=== PATIENT | male | born 1980 | race Caucasian/White ===

== ENCOUNTER 2023-12-13 16:38 | Emergency (ER) | payer OTHER, MEDICARE, SELFPAY ==
[2023-12-13] VITALS (7 sets, daily range): BP systolic 136–153; BP diastolic 103–115; PULSE 76–97; RESP 14–20; TEMP 36.8; O2SAT 95–100
--- NOTE | ~2023-12-13 | CT_ITS ---
CT cervical spine wo con Ordering provider: Rosy Pierre PA-C History: . paresthesias . Comparison: None. Technique: CT of the cervical spine was performed without contrast. Sagittal and coronal reformatted images were also obtained and reviewed. Automated exposure control and iterative reconstruction joseph hnique were employed. The dose-length product was 471.26 mGy-cm. FINDINGS: VERTEBRAE: No subluxation or acute fracture. The occipital condyles are intact. Degenerative changes of the spine. DISC SPACES: Narrowing of the disc C6-C7. Bilateral narrowing of the foramina at the level of C6-7. PARASPINOUS SOFT TISSUES: Normal. IMPRESSION: No acute osseous abnormality cervical spine. Reviewed, dictated and finalized at location A.
--- NOTE | ~2023-12-13 | CT_ITS ---
CT brain wo con Ordering provider: Rosy Pierre PA-C History: 43 years Male with . Paresthesias . Comparison: None. Technique: CT of the head without contrast. Radiation reduction technique utilized. DLP is 605.33 mGy. FINDINGS: BRAIN PARENCHYMA AND CSF SPACES: No midline shift, mass effect or hemorrhage. The brain parenchyma a nd CSF spaces are otherwise normal. VISUALIZED PARANASAL SINUSES: Well aerated. Left nasal septal deviation. MASTOIDS: Well aerated. BONES: The bones appear intact. SOFT TISSUES: Visualized nasopharynx is normal. Superficial soft tissues are normal. IMPRESSION: No acute intracranial findings. Reviewed, dictated and finalized at location A.
--- NOTE | ~2023-12-13 | XR_ITS ---
XR chest 2V Ordering provider: Speedy Cm MD History: 43 years Male with . shortness of breath . Comparison: May 16, 2012 FINDINGS: MEDIASTINUM: The cardiac silhouette is not enlarged. LUNGS: No infiltrates, effusions or pneumothorax. OTHER: No free air under the diaphragm. Degenerative changes of the spine. IMPRESSION: No acute cardiopulmonary pathology. Reviewed, dictated and finalized at location A.
--- NOTE | 2023-12-13 16:43 | ECG_ITS ---
Test Date: 2023-12-13 16:46:54 Measurements Intervals [place] Rate: 88 P: 19 OK: 163 QRS: -25 QRSD: 113 T: 9 QT: 349 QTc: 424 Interpretive Statements SINUS RHYTHM VOLTAGE CRITERIA FOR LVH [MEETS CRITERIA IN ONE OF: R(aVL), S(V1), R(V5), R(V5/V6)+S(V1)] POSSIBLE SEPTAL MYOCARDIAL INFARCTION , PROBABLY OLD [30 ms Q WAVE IN V1/V2] POSSIBLE LATERAL MYOCARDIAL INFARCTION , PROBABLY OLD [30 ms Q WAVE IN I/aVL/V5/V6] No previous ECG available for comparison Electronically Signed On 12-14-2023 11:07:41 CDT by Karthik Dorado M.D.
--- NOTE | 2023-12-13 16:49 | ED.SOB ---
HPI - SOB/Dyspnea General Chief Complaint: Shortness of Breath/Dyspnea <Yuliya Day PA-C - Last Filed: 12/13/23 16:51> Stated Complaint: difficulty breathing, arm numbness <RENETTA Da Silva Last Filed: 12/13/23 16:51> Time Seen by Provider: 12/13/23 17:16 <RENETTA Da Silva Last Filed: 12/13/23 16:51> Focused HPI: 43-year-old male with history of hypertension and prediabetes presents to the emergency department for shortness of breath and numbness in his bilateral upper extremities Intermittently for approximately 1 week. reports a cough that is productive with intermittent black specks. Denies fever. He does endorse of smoking history but has been trying to quit over the past month. Denies history of asthma. Denies recent surgeries or hospitalizations, lower extremity edema. states he is currently on antibiotics for dental infection. Denies chest pain. He does endorse a history of anxiety and states he feels anxious. GENERAL: Well-appearing, well-nourished, and in no acute distress. HEAD: Normocephalic, atraumatic. CHEST: Clear to auscultation. ?No respiratory distress. HEART: Regular rate and rhythm.? NEURO: ?Alert and oriented x3. Patient screened in triage and initial orders placed.? ?Additional care and disposition to be based upon?diagnostic testing and treatment. <RENETTA Da Silva Last Filed: 12/13/23 16:51> Related Data Home Medications: Home Medications Medication Instructions Recorded Confirmed cholecalciferol (vitamin D3) 125 125 mcg PO DAILY 11/26/22 11/26/22 mcg (5,000 unit) capsule coenzyme Q10 200 mg capsule 200 mg PO DAILY 11/26/22 11/26/22 cholecalciferol (vitamin D3) 125 125 mcg PO DAILY 11/30/22 mcg (5,000 unit) capsule <RENETTA Da Silva Last Filed: 12/13/23 16:51> Allergies/Adverse Reactions: Allergies Allergy/AdvReac Type Severity Reaction Status Date / Time No Known Allergies Allergy Verified 12/13/23 17:07 <RENETTA Da Silva Filed: 12/13/23 16:51> Review of Systems Review of Systems: CONSTITUTIONAL: Denies fever EYES: Denies visual changes CARDIOVASCULAR: Denies chest pain RESPIRATORY: Reports dyspnea. GASTROINTESTINAL: Denies vomiting MUSCULOSKELETAL: Reports joint pain, and myalgia. NEUROLOGIC: Reports numbness. Denies headache, or weakness. <Rosy Pierre PA-C - Last Filed: 12/13/23 19:15> All systems reviewed & are unremarkable except as noted in HPI and below <Rosy Pierre PA-C - Last Filed: 12/13/23 19:15> [facility] Past Medical History Medical History: Medical History (Updated 12/13/23 @ 19:15 by Rosy Pierre PA-C) Anxiety Dyslipidemia History of cleft lip HTN (hypertension), benign Impaired fasting blood sugar Nystagmus Steatohepatitis Tooth infection Vitamin D deficiency <Yuliya Day PA-C - Last Filed: 12/13/23 16:51> Family History Family History: Family History ) Mother Hypertension Family history of diabetes mellitus in first degree relative Depression Heart disease Grandparent Family history of throat cancer Hypertension Diabetes mellitus Other Diabetes mellitus Hypertension Cerebrovascular accident Other Thyroid disorder Heart disease Diabetes mellitus Hypertension Sibling Hypertension Other Family history of coronary artery disease <Yuliya Day PA-C - Last Filed: 12/13/23 16:51> Social History Social History: Social History ) Smoking packs per day: 1 Smoking cigarettes per day: 20.0 Smoking status: Current every day smoker Tobacco type: cigarettes Alcohol intake: former Substance use: never Substance use type: does not use Living arrangements: with family Occupation/Education: occupation Gender identity (if verbalized by the patient): Male Agree to blood pr
[2023-12-13 17:26] LABS: Basophils Absolute Auto 0.1 K/mm3 (0.0-0.1); Basophils Percent Auto 0.8 % (0.2-1.2); Eosinophils Absolute Auto 0.2 K/mm3 (0-0.3); Eosinophils Percent Auto 1.7 % (0-4.4); Hematocrit 44.5 % (42.0-52.0); Hemoglobin 15.2 g/dL (14.0-18.0); Immature Granulocyte Absolute 0.01 K/mm3 (0.00-0.031); Immature Granulocyte Percent A 0.1 % (0-0.5); Lymphocytes Absolute Auto 1.92 K/mm3 (0.9-3.2); Lymphocytes Percent Auto 21.5 % (18.3-44.2); Mean Corpuscular HGB Conc 34.2 g/dl (32-36); Mean Corpuscular Hemoglobin 30.8 pg (26-34); Mean Corpuscular Volume 90.1 fl (80-100); Mean Platelet Volume 9.4 fl (7.4-10.4); Monocytes Absolute Auto 0.8 K/mm3 (0.1-0.6); Monocytes Percent Auto 8.4 % (2.6-8.5); Neutrophils Percent Auto 67.5 % (45.5-73.1); Platelet Count Result 311 k/mm3 (150-375); Red Blood Count 4.94 M/mm3 (4.6-6.20); Red Cell Distribution Width 12.3 % (11.5-14.5); White Blood Count 8.9 K/mm3 (4.5-10.0)
[2023-12-13 17:37] LABS: Alanine Aminotransferase 94 U/L (6-50); Alkaline Phosphatase 138 U/L (38-126); Anion Gap 12 mmol/L (4-12); Aspartate Amino Transferase 37 U/L (17-59); Bilirubin,Total 0.5 mg/dL (0.2-1.3); Blood Urea Nitrogen 9 mg/dL (9-20); Carbon Dioxide 24 mmol/L (22-30); Chloride 105 mmol/L (98-107); Estimated CRCL calculation 115 ml/min; Estimated Glomerular Filt Rate > 60; Glucose 145 mg/dL (65-110); Potassium 3.9 mmol/L (3.4-5.0); Sodium 141 mmol/L (137-145)
[2023-12-13 17:40] LABS: Prothrombin Time 13.5 Seconds (11.1-14.7)
[2023-12-13 17:41] LABS: Partial Thromboplastin Time 31.3 Seconds (22.3-36.8)
[2023-12-13 17:49] LABS: Troponin I < 0.012 ng/mL (0.000-0.034)
[2023-12-13 17:50] LABS: D Dimer < 0.27 ug/mL (<0.48)
--- NOTE | 2023-12-13 18:08 | PC.NURSE ---
called down to lab at this time to add on a lipase
[2023-12-13 18:18] LABS: Lipase 62 U/L (23-300)
== END 2023-12-13 19:32 | disposition home or self-care (01) ==
PROVIDERS: Emergency Medicine; Physician Assistant; Emergency Provider Physician Assistant; PCP Physician Assistant Medical
DX: R06.02 Shortness of breath (principal); R20.2 Paresthesia of skin; I10 Essential (primary) hypertension; E78.5 Hyperlipidemia, unspecified; E55.9 Vitamin D deficiency, unspecified; R73.03 Prediabetes; F17.210 Nicotine dependence, cigarettes, uncomplicated; R94.31 Abnormal electrocardiogram [ECG] [EKG]
CPT/HCPCS: 36415; 70450; 71046; 72125; 80053; 83690; 83735; 84484; 85025; 85380; 85610; 85730; 93005; 99284

== ENCOUNTER 2024-08-15 17:17 | Emergency (ER) | payer OTHER, MEDICARE, SELFPAY ==
[2024-08-15 17:19] VITALS: BP 160/113; PULSE 94; RESP 18; TEMP 36.9; O2SAT 96
--- NOTE | 2024-08-15 17:25 | ED.GENADULT ---
HPI - General Adult General Chief complaint: Recheck/Abnormal Lab/Rx Stated complaint: high blood sugar Time Seen by Provider: 08/15/24 17:25 Source: patient Mode of arrival: ambulatory Limitations: no limitations History of Present Illness HPI narrative: 44-year-old male with a history of ex smoking, left lip status post repair,hypertension, diabetes mellitus, dyslipidemia, fatty liver presents to the ED with -- elevated blood sugars. He was noted to have a blood sugar of 414 -- brain fog -- fluctuations of his vision. He has cloudiness of his vision. -- Polyuria, polyphagia, polydipsia -- significant weight loss over the past 1 year Onset (ago): month(s) Associated symptoms: denies other symptoms Treatments prior to arrival: none Related Data Home Medications ?Medication ?Instructions ?Recorded ?Confirmed ?Last Taken ?Type cholecalciferol (vitamin D3) 125 125 mcg PO DAILY 11/30/22 07/10/24 Unknown History mcg (5,000 unit) capsule omeprazole 20 mg capsule,delayed 20 mg PO DAILY 08/15/24 Unknown History release Allergies Allergy/AdvReac Type Severity Reaction Status Date / Time clindamycin AdvReac Nausea Verified 08/15/24 17:34 Review of Systems Review of Systems: All systems reviewed & are unremarkable except as noted in HPI and below PMFSH Past Medical History Medical History (Updated 08/15/24 @ 18:47 by Arvind Anaya MD) Metabolic dysfunction-associated steatotic liver disease (MASLD) FH: CAD (coronary artery disease) mom and brother Diabetes Degenerative disc disease, cervical C6-7 Tooth infection Vitamin D deficiency Anxiety Nystagmus History of cleft lip HTN (hypertension), benign Dyslipidemia Family History Family History ) Mother Hypertension Family history of diabetes mellitus in first degree relative Depression Heart disease Grandparent Family history of throat cancer Hypertension Diabetes mellitus Other Diabetes mellitus Hypertension Cerebrovascular accident Other Thyroid disorder Heart disease Diabetes mellitus Hypertension Sibling Hypertension Other Family history of coronary artery disease Social History Social History ) Smoking packs per day: 1 Smoking cigarettes per day: 20.0 Smoking status: Former smoker (quit in november ) Tobacco type: cigarettes Alcohol intake: former Substance use: never Substance use type: does not use Living arrangements: with family Occupation/Education: occupation Gender identity (if verbalized by the patient): Male Agree to blood products: Yes Exam Narrative: blood pressure is noted to be 160/113 with a heart rate of 94. Oxygen saturation of 96% on room air. Const: General: healthy appearing and no acute distress Nutritional Appearance: well nourished Orientation/consciousness: patient oriented x3 Limitations: no limitations HENMT: Head: normal to inspection Ears: external ears normal Face/Nose/Sinus: Normal external nose present Face and sinus: normal facial exam Mouth: Yes Normal oral and palatal mucosa present Throat: posterior oropharynx normal Eyes: Conjunctivae: conjunctivae normal Pupils: Equal, round and reactive pupils present EOM: EOMs intact bilaterally Direct Ophthalmoscopy: no photophobia Neck: Neck: normal visual inspection, no lymphadenopathy and no meningeal signs Chest: Chest palpation & inspection: normal inspection of the chest Resp: Effort & Inspection: normal respiratory effort Auscultation: clear to auscultation bilaterally Cardio: Rate: regular rate Rhythm: regular rhythm GI: GI Palp: Yes Soft to palpation Auscultation: normal bowel sounds Other: No tenderness/ rigidity /rebound : General: Yes no CVA tenderness Back/Spine/Pelvis: Back: no CVA tenderness Skin: General skin exam: normal color Rashes: no rashes Wounds: no wounds Neuro: General: patient oriented x3, moves all extremities, no meningeal signs, no focal motor deficits and CN's II-XI intact bilaterally Cranial nerves: Yes Nystagmus not present Speech: normal speech Gait exam (Neuro): Normal gait present Extrem: General: normal to inspection and no clubbing, cyanosis or edema Psych: Mental Status: mental status grossly normal Affect: Anxious affect present Course Course Emergency Course: hypertension diabetes mellitus with hyperglycemia Vital Signs Vital signs: Vital Signs Temperature 36.9 C 08/15/24 17:19 Pulse Rate 94 08/15/24 17:19 Respiratory Rate 18 08/15/24 17:19 Blood Pressure 160/113 H 08/15/24 17:19 Pulse Oximetry 96 08/15/24 17:19 Oxygen Delivery Room Air 08/15/24 17:19 Temperature 36.9 C 08/15/24 17:19 Pulse Rate 94 08/15/24 17:19 Respiratory Rate 18 08/15/24 17:19 Blood Pressure 160/113 H 08/15/24 17:19 Pulse Oximetry 96 08/15/24 17:19 Oxygen Delivery Room Air 08/15/24 17:19 Medical Decision Making MDM Narrative Medical decision making narrative: hypertension diabetes mellitus with hyperglycemia-- patient has been a diabetic since 2022. Differential Diagnosis Differential Diagnosis: viral illness, Medical Records Medical records reviewed: Yes I reviewed the external patient's medical records. Vital Signs Vital Signs: Vital Signs Temperature 36.9 C 08/15/24 17:19 Pulse Rate 94 08/15/24 17:19 Respiratory Rate 18 08/15/24 17:19 Blood Pressure 160/113 H 08/15/24 17:19 Pulse Oximetry 96 08/15/24 17:19 Oxygen Delivery Room Air 08/15/24 17:19 Temperature 36.9 C 08/15/24 17:19 Pulse Rate 94 08/15/24 17:19 Respiratory Rate 18 08/15/24 17:19 Blood Pressure 160/113 H 08/15/24 17:19 Pulse Oximetry 96 08/15/24 17:19 Oxygen Delivery Room Air 08/15/24 17:19 Lab Data 08/15/24 17:57 08/15/24 17:57 Labs: Lab Results 08/15/24 08/15/24 Range/Units 17:45 17:57 WBC 5.2 (4.8-10.8) K/mm3 RBC 4.92 (4.70-6.10) M/mm3 Hgb 15.2 (14.0-18.0) g/dL Hct 43.0 (40.0-54.0) % MCV 87.4 (78.0-102.0) fL MCH 30.9 (27.0-31.0) pg MCHC 35.3 (32-36) g/dL RDW 11.9 (11.6-14.4) % Plt Count 215 (150-420) K/mm3 MPV 9.5 (8.7-11.0) fl Immature Gran % (Auto) 0.2 H (0.0-0.0) % Neut % (Auto) 56.4 (50.0-70.0) % Lymph % (Auto) 32.4 (18.0-42.0) % [place] % (Auto) 7.5 (2.0-11.0) % Eos % (Auto) 2.3 (1.0-6.0) % Baso % (Auto) 1.2 H (0.0-1.0) % Lymph # (Auto) 1.69 (1.10-4.50) K/mm3 [place] # (Auto) 0.39 (0.10-0.90) K/mm3 Eos # (Auto) 0.12 (0.02-0.50) K/mm3 Baso # (Auto) 0.06 (0.00-0.10) K/mm3 Abs Immat Gran (auto) 0.01 H (0.00-0.00) K/mm3 Absolute Neuts (auto) 2.94 (1.70-7.20) K/mm3 Absolute Nucleated RBC 0.00 (0.00-0.00) K/mm3 Nucleated RBC % 0.0 (0-0.0) % PT 10.5 (9.50-12.1) Seconds INR 0.9 Sodium 137 (136-145) mmol/L Potassium 4.1 (3.5-5.1) mmol/L Chloride 98 (98-108) mmol/L Carbon Dioxide 27 (21-32) mmol/L Anion Gap 12 (4-12) mmol/L BUN 12 (7-18) mg/dL Creatinine 1.12 (0.70-1.30) mg/dL Estim Creat Clear Calc 83 ml/min Estimated GFR > 60 (59 - ) Glucose 439 H* (70-99) mg/dL Calculated Osmolality 302 H (285-295) mOsm/kg Calcium 9.1 (8.5-10.1) mg/dL Total Bilirubin 0.5 (0.00-1.00) mg/dL AST 20 (15-37) U/L ALT 45 (16-63) U/L Alkaline Phosphatase 131 H (46-116) U/L Troponin I < 4.0 (0.00-60.4) ng/L Total Protein 7.8 (6.4-8.2) g/dL Albumin 4.0 (3.4-5.0) g/dL TSH 1.84 (0.36-3.74) uIU/mL Urine Color Light yellow (Yellow) Urine Appearance Clear (Clear) Urine pH 7.0 (5.0-8.0) Ur Specific [place] 1.010 (1.010-1.020) Urine Protein Negative (Negative) Urine Glucose (UA) 3+ H (Negative) Urine Ketones Negative (Negative) Ur Blood (Man) Negative (Negative) Urine Nitrate Negative (Negative) Urine Bilirubin Negative (Negative) Urine Urobilinogen 0.2 (0.2-1.0) mg/dL Leukocyte Esterase Rfl Negative (Negative) ROGELIO/UL ECG Data EKG #1: ECG completion date: 08/15/24 ECG completion time: 17:50 Interpretation: Normal sinus rhythm. Left axis deviation. LVH. No ST elevation. Discharge Plan Discharge Clinical Impression: Hyperglycemia Hypertension Qualifiers: Hypertension type: unspecified Qualified Code(s): I10 - Essential (primary) hypertension Patient Disposition: Home, Self-Care Condition: Stable Instructions: Antibiotic Form, Hypertension (ED), Diabetic Hyperglycemia (ED), Diabetes and Nutrition (ED), Diabetes and Exercise (ED) Patient Language: Ghanaian Prescriptions: New metformin 500 mg tablet 500 mg PO BID Qty: 60 0RF hydrochlorothiazide 12.5 mg capsule 12.5 mg PO DAILY Qty: 30 0RF No Action omeprazole 20 mg capsule,delayed release(DR/EC) 20 mg PO DAILY cholecalciferol (vitamin D3) 125 mcg (5,000 unit) capsule 125 mcg PO DAILY amlodipine-benazepril 10-20 mg capsule 1 cap PO DAILY Qty: 90 0RF atorvastatin 20 mg tablet 20 mg PO DAILY Qty: 90 0RF Follow-up/Referrals: UNKNOWN,DOCTOR [Non-Staff] - Time of Disposition: 18:49
--- NOTE | 2024-08-15 17:28 | PC.NURSE ---
blood glucose 414
[2024-08-15 18:00] LABS: Basophils Absolute Auto 0.06 K/mm3 (0.00-0.10); Basophils Percent Auto 1.2 % (0.0-1.0); Eosinophils Absolute Auto 0.12 K/mm3 (0.02-0.50); Eosinophils Percent Auto 2.3 % (1.0-6.0); Hemoglobin 15.2 g/dL (14.0-18.0); Immature Granulocyte Absolute 0.01 K/mm3 (0.00-0.00); Immature Granulocyte Percent A 0.2 % (0.0-0.0); Lymphocytes Absolute Auto 1.69 K/mm3 (1.10-4.50); Lymphocytes Percent Auto 32.4 % (18.0-42.0); Mean Corpuscular HGB Conc 35.3 g/dL (32-36); Mean Corpuscular Hemoglobin 30.9 pg (27.0-31.0); Mean Corpuscular Volume 87.4 fL (78.0-102.0); Mean Platelet Volume 9.5 fl (8.7-11.0); Monocytes Absolute Auto 0.39 K/mm3 (0.10-0.90); Monocytes Percent Auto 7.5 % (2.0-11.0); Neutrophils Absolute Auto 2.94 K/mm3 (1.70-7.20); Neutrophils Percent Auto 56.4 % (50.0-70.0); Platelet Count Result 215 K/mm3 (150-420); Red Blood Count 4.92 M/mm3 (4.70-6.10); Red Cell Distribution Width 11.9 % (11.6-14.4); White Blood Count 5.2 K/mm3 (4.8-10.8)
[2024-08-15 18:01] LABS: Add Urine Microscopic? NO; Appearance Urine Clear (Clear); Bilirubin Urine Negative (Negative); Blood Urine Negative (Negative); Color Urine Light Yellow (Yellow); Glucose Urine UA 3+ (Negative); Ketones Urine Negative (Negative); Leukocyte Esterase Ur Negative LEU/UL (Negative); Nitrate Urine Negative (Negative); Protein Urine Negative (Negative); Urobilinogen Urine 0.2 mg/dL (0.2-1.0)
[2024-08-15 18:13] LABS: INR 0.9; Prothrombin Time 10.5 Seconds (9.50-12.1)
[2024-08-15 18:33] LABS: Alanine Aminotransferase 45 U/L (16-63); Alkaline Phosphatase 131 U/L (46-116); Anion Gap 12 mmol/L (4-12); Aspartate Amino Transferase 20 U/L (15-37); Bilirubin,Total 0.5 mg/dL (0.00-1.00); Blood Urea Nitrogen 12 mg/dL (7-18); Calcium 9.1 mg/dL (8.5-10.1); Carbon Dioxide 27 mmol/L (21-32); Chloride 98 mmol/L (98-108); Estimated CRCL calculation 83 ml/min; Estimated Glomerular Filt Rate > 60; Osmolality Calculated 302 mOsm/kg (285-295); Potassium 4.1 mmol/L (3.5-5.1); Sodium 137 mmol/L (136-145); Total Protein 7.8 g/dL (6.4-8.2)
[2024-08-15 18:34] LABS: Glucose 439 mg/dL (70-99); Thyroid Stimulating Hormone 1.84 uIU/mL (0.36-3.74); Troponin I < 4.0 ng/L (0.00-60.4)
[2024-08-15] MEDS: INSULIN HUMAN REGULAR (*BKC) 1,000 UNITS/10 ML VIAL 5 UNITS SUB-Q (19:03)
[2024-08-15 19:10] VITALS: BP 171/109; PULSE 78; RESP 20; TEMP 36.7; O2SAT 96
[2024-08-16 00:17] LABS: Glucose Point of Care 414 mg/dl (65-105)
== END 2024-08-15 19:10 | disposition home or self-care (01) ==
PROVIDERS: Emergency Provider Internal Medicine Critical Care Medicine; PCP Physician Assistant Medical
DX: E11.65 Type 2 diabetes mellitus with hyperglycemia (principal); I10 Essential (primary) hypertension; E78.5 Hyperlipidemia, unspecified; K76.0 Fatty (change of) liver, not elsewhere classified; Z87.891 Personal history of nicotine dependence; Z79.899 Other long term (current) drug therapy
CPT/HCPCS: 36415; 80053; 81003; 82948; 84443; 84484; 85025; 85610; 93005; 99284; J1815

== ENCOUNTER 2024-08-20 10:02 | Outpatient (CLI) | payer MEDICARE, OTHER, SELFPAY ==
[2024-08-20 10:36] LABS: Basophils Absolute Auto 0.06 K/mm3 (0.00-0.10); Basophils Percent Auto 0.8 % (0.0-1.0); Eosinophils Absolute Auto 0.13 K/mm3 (0.02-0.50); Eosinophils Percent Auto 1.8 % (1.0-6.0); Hematocrit 47.4 % (40.0-54.0); Hemoglobin 16.5 g/dL (14.0-18.0); Immature Granulocyte Absolute 0.02 K/mm3 (0.00-0.00); Immature Granulocyte Percent A 0.3 % (0.0-0.0); Lymphocytes Absolute Auto 1.91 K/mm3 (1.10-4.50); Lymphocytes Percent Auto 26.2 % (18.0-42.0); Mean Corpuscular HGB Conc 34.8 g/dL (32-36); Mean Corpuscular Hemoglobin 30.2 pg (27.0-31.0); Mean Corpuscular Volume 86.8 fL (78.0-102.0); Mean Platelet Volume 9.4 fl (8.7-11.0); Monocytes Absolute Auto 0.73 K/mm3 (0.10-0.90); Neutrophils Absolute Auto 4.44 K/mm3 (1.70-7.20); Neutrophils Percent Auto 60.9 % (50.0-70.0); Platelet Count Result 249 K/mm3 (150-420); Red Blood Count 5.46 M/mm3 (4.70-6.10); Red Cell Distribution Width 11.8 % (11.6-14.4); White Blood Count 7.3 K/mm3 (4.8-10.8)
--- OUTSIDE RECORDS SUMMARY | 2024-08-20 11:22 | XMS_ITS | Encounter Summary ---
Author Organization [employer] Address 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
--- OUTSIDE RECORDS SUMMARY | 2024-08-20 11:22 | XMS_ITS | Encounter Summary ---
Author Organization [facility] Address [address] [place] [id number] Care Team Providers Care Lacrosse Coach Name Role Phone Trupti Cooper Primary Care Provider [phone] Reason for Visit * Reason Onset Date Comments Consult 08/20/2024 Encounter Details Date Type Department Care Team (Late st Contact Info) Description 08/20/[address] [address] Bela Wiseman RMA Consult Social History Tobacco Use Types Packs/Day Years Used Date Smoking Tobacco: Every Day Cigarettes 1 29.2 Started: 1995 Smokeless Tobacco: Never Comments:Would like to stop smoking Alcohol Use Standard Drinks/Week Comments Yes 0 (1 standard drink = 0.6 oz pur e alcohol) AUDIT-C Answer Date Recorded Frequency of Alcohol Consumption Monthly or less 12/25/2019 Average Number of Drinks Not on file 020 Frequency of Binge Drinking Not on file 12/15 PHQ-2 Answer Date Recorded PHQ-2 Score - If the patient scores above 3, please move on to questions 3-9 2 09/25/2021 Sex and Gender Information Value Date Recorded Sex Assigned at Not on file Legal Sex Male 5:37 PM CDT Gender Identity Male 09/12/2021 6:14 AM CDT Sexual Orientation Straight 09/12/2021 6: 14 AM CDT documented as of this encounter Progress Notes * LAURIE Pereira - 08/20/2024 10:05 AM CST Left message to schedule consult per CHELE Victoria (x2). Will send letter for patient to contact our office to schedule. RATORY IMMUNOLOGIST documented in this encounter Plan of Treatment Not on file documented as of this encounter Visit Diagnoses Not on filedocumented in this encounter Additional Health Concerns Assessment Noted Time PHQ-9 Depression Total Score: 6 09/26/19 22 3:36 PM CDT documented as of this encounter Care Teams Lacrosse Coach Relationship Specialty Start Date End Date Trupti Cooper PA [address] [place] [id number] PCP - General PHYSICIAN RETAIL LOAN ORIGINATOR ASSISTANT 07/15/24 documented as of this encounter
--- OUTSIDE RECORDS SUMMARY | 2024-08-20 11:22 | XMS_ITS | Clinical Summary ---
Author Organization [facility] Address [facility] [place] [address] Care Team Providers Care Tafe Lecturer Name Role Phone Trupti Cooper Primary Care Provider [phone] Allergies No known active allergies Medications fluticasone propionate 50 MCG/ACT nasal spray 1 spray by Nasal route 2 (two) times daily. 6 Active hydroCHLOROthiazi de 25 MG tabletIndications :Essential hypertension with goal blood pressure less than 140/90 Take 1 tablet (25 mg total) by mouth daily. 30 tablet 3 0 Active amLODIPine 10 MG tabletIndications :Essential hypertension with goal blood pressure less than 140/90 Take 1 tablet (10 mg total) by mouth daily. 90 tablet 1 2 Active venlafaxine XR (EFFEXOR-XR) 75 MG 24 hr capsuleIndication s:Generalized anxiety disorder Take 1 capsule by mouth once daily 30 capsule 2 2 Active busPIRone (BUSPAR) 15 MG tabletIndications :SOB (shortness of breath) Take 1 tablet by mouth twice daily 90 tablet 2 Active atorvastatin (LIPITOR) 20 MG tabletIndications :Dyslipidemia Take 1 tablet by mouth once daily 90 tablet 2 Active Active Problems Problem Noted Date Diagnosed Date Acute viral syndrome 09/12/2021 Other hyperlipidemia 10/01/2019 Dermatitis 08/20/2017 Diverticulitis 05/08/2017 BMI 30.0-30.9,adult 03/21/2016 Essential hypertension with goal blood pressure less than 140/90 02/15/2016 Fatty liver 02/15/2016 Generalized anxiety disorder 02/15/2016 Heart burn 02/15/2016 Tobacco abuse 02/15/2016 Encounters Date Type Department Care Team Description 08/20/2024 Telephone [facility] [address] [place] [address] Bela Wiseman, RMA Consult 07/16/2024 Telephone [facility] [address] [place] [address] Bela Wiseman, RMA Consult from Last 3 Months Immunizations Name Administration Dates Next Due Influenza Adult (Generic) 03/21/2016 Td (Tenivac) preservative free 1981 Tdap (Boostrix) 03/02/2023 Family History Medical History Relation Comments Hypertension Father Diabetes Mother Hyperlipidemia Mother Hypertension Mother Relation Status Comments Father Alive Mother Alive Social History Tobacco Use Types Packs/Day Years Used Date Smoking Tobacco: Every Day Cigarettes 1 29.2 Started: 1995 Smokeless Tobacco: Never Tobacco Cessation:Counseling Given: Yes Comments:Would like to stop smoking Alcohol Use [...] Orientation Straight 09/12/2021 6: 14 AM CDT Last Filed Vital Signs Vital Sign Reading Time Taken Comments Blood Pressure 142/91 03/02/2023 9:33 PM CDT Pulse 80 03/02/2023 9:33 PM CDT Temperature 36.8 C (98.3 F) 03/02/2023 9:33 PM CDT Respiratory Rate 16 03/02/2023 9:33 PM CDT Oxygen Saturation 97% 03/02/2023 9:33 PM CDT Inhaled Oxygen Concentration - - Weight 102.1 kg (225 lb) 03/02/2023 7:55 PM CDT Height 182.9 cm (6') 03/02/2023 7:55 PM CDT Body Mass Index 30.52 03/02/2023 7:55 PM CDT Plan of Treatment Health Maintenance Due Date Last Done Comments Annual Physical 1984 Pneumococcal Vaccine: Pediatrics (0 to 5 Years) and At-Risk Patients (6 to 64 Years) (1 of 2 - PCV) 1987 Hepatitis C 1999 Hepatitis B Vaccines (1 of 3 - 19+ 3-dose series) 2000 COVID-19 Vaccine (2023-2 5 season) 2024 Influenza Adult (#1) 2024 03/21/2016 DTaP, Tdap and Td Vaccines ( 2 - Td or Tdap) 03/02/2033 03/02/2023, 1981 HPV Vaccines Aged Out No longer eligi ble based on patient's age to complete this topic Meningococcal B Vaccine Aged Out No l onger eligible based on patient's age to complete this topic Meningococcal Vaccine Aged Out No betzaida raymond eligible based on patient's age to complete this topic RSV Immunizations Under 20 Months Aged Out No longer eligible b ased on patient's age to complete [place] [id number] Care Teams Tafe Lecturer Relationship Specialty Start Date End Date Trupti Cooper PA [address] [place] [phone] PCP - General PHYSICIAN CHANNEL DEVELOPMENT MANAGER 07/15/24
--- OUTSIDE RECORDS SUMMARY | 2024-08-20 11:22 | XMS_ITS | Encounter Summary ---
Author Organization [employer] Address 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
--- OUTSIDE RECORDS SUMMARY | 2024-08-20 11:23 | XMS_ITS | Encounter Summary ---
Author Organization [facility] Address [address] [place] [address] Care Team Providers Care Ragman Name Role Phone Becky Hook MD Primary Care Provider [phone] Encounter Details Date Type Department Care Team (Late st Contact Info) Description 09/16/2004 Outpatient Historical [facility], Authorized P NO ADDRESS ON FILE CHEST PAIN NOS (Primary Dx) Social History Tobacco Use Types Packs/Day Years Used Date Smoking Tobacco: Never Assessed Sex and Gender Information Value Date Recorded Sex Assigned at Not on file Legal Sex Male 4:20 AM INSIDE ACCOUNT REPRESENTATIVE Gender Identity Not on file Sexual Orientation Not on file documented as of this encounter Plan of Treatment Not on file documented as of this encounter Procedures Procedure Name Priority Date/Time Associated Diagnosis Comments TROPONIN (W/REFLEX CKMB/CK) Routine 09/16/2004 1:04 PM INSIDE ACCOUNT REPRESENTATIVE CBC WITH DIFFERENTIAL Routine 09/16/2004 1:04 PM INSIDE ACCOUNT REPRESENTATIVE CBC WITH DIFFERENTIAL Routine 09/16/2004 1:04 PM INSIDE ACCOUNT REPRESENTATIVE documented in this encounter Results * CBC WITH DIFFERENTIAL (09/16/2004 1:04 PM INSIDE ACCOUNT REPRESENTATIVE) NEUTROPHIL ABSOLUTE 2.35 1.90 - 7.00 K/uL INTERFACE SYSTEM LYMPHOCYTE ABSOLUTE 1.79 0.70 - 4.50 K/uL INTERFACE SYSTEM MONOCYTE ABSOLUTE 0.47 0.10 - 1.30 K/uL INTERFACE SYSTEM EOSINOPHIL ABSOLUTE 0.05 0.00 - 0.70 K/uL INTERFACE SYSTEM BASOPHILS ABSOLUTE 0.05 0.00 - 0.20 K/uL INTERFACE SYSTEM NEUTROPHILS, SEG 50 45 - 70 % INT ERFACE SYSTEM LYMPHOCYTES 34 16 - 45 % INTERFAC E SYSTEM MONOCYTES 10 3 - 13 % INTERFACE SYSTEM EOSINOPHILS 1 0 - 7 % INTERFAC E SYSTEM BASOPHILS 1 0 - 2 % INTERFACE SYSTEM ATYPICAL LYMPHOCYTE 4 0 - 5 % INTERFACE SYSTEM PLATELET EST. Normal Normal INTERF JASPAL SYSTEM RBC MORPHOLOGY Normal Normal INTER FACE SYSTEM COMMENT, DIFFERENTIAL INTERFACE SYSTEM Comment: large plts present REVIEWED ON SMEAR Plt OK by Smear Rev. INTERFACE SYSTEM 09/16/2004 1:04 PM INSIDE ACCOUNT REPRESENTATIVE Mary Julian HEMATOLOGY ORDERABLES Final Resu lt Performing Organization Address City/[facility] de Phone Number INTERFACE SYSTEM Refer to clinic/hospital department * (ABNORMAL) CBC WITH DIFFERENTIAL (09/16/2004 1:04 PM INSIDE ACCOUNT REPRESENTATIVE) WBC 4.7 4.0 - 9.8 K/uL INTERFACE SYSTEM RBC 5.23 4.50 - 5.40 M/uL INTERFACE SYSTEM HEMOGLOBIN 16.9(H) 13.6 - 16.5 g/dL INTERFACE SYSTEM HEMATOCRIT 47.9 40.0 - 48.0 % INTERFACE SYSTEM MCV 91.6 82.0 - 99.0 fL INTERFACE SYSTEM MCH 32.3 27.2 - 32.6 pg INTERFACE SYSTEM MCHC 35.3 31.5 - 35.5 % INTERFACE SYSTEM RDW 12.2 11.5 - 14.5 % INTERFACE SYSTEM RDW-STDEV 41.4 37.1 - 48.7 fL INTERFACE SYSTEM PLATELETS 268 140 - 350 K/uL INTERFACE SYSTEM MPV 9.9 9.3 - 12.4 fL INTERFACE SYSTEM 09/16/2004 1:04 PM INSIDE ACCOUNT REPRESENTATIVE Result [facility] Mary Julian HEMATOLOGY ORDERABLES Final Resu lt Performing Organization Address City/[facility]/ZIP Co de Phone Number INTERFACE SYSTEM Refer to clinic/hospital department * TROPONIN (W/REFLEX CKMB/CK) (09/16/2004 1:04 PM INSIDE ACCOUNT REPRESENTATIVE) TROPONIN T <0.01 <=0.03 ng/mL INTERFACE SYSTEM TROPONIN T INTERP Negative INTERFACE SYSTEM 09/16/2004 1:04 PM INSIDE ACCOUNT REPRESENTATIVE Result [facility] Mary Julian CHEMISTRY ORDERABLES Final Resul t INTERFACE SYSTEM Refer to clinic/hospital department documented in this encounter Visit Diagnoses Diagnosis Chest pain, unspecified- Primary documented in this encounter Care Teams Ragman Relationship Specialty Start Date End Date Becky Hook MD [address] [place] [phone] PCP - General 09/10/05 11/06/18 documented as of this encounter
--- OUTSIDE RECORDS SUMMARY | 2024-08-20 11:23 | XMS_ITS | Encounter Summary ---
Author Organization [facility] Address [address] [place] [address] Care Team Providers Care Field Marketing Lead Name Role Phone Becky Hook MD Primary Care Provider [phone] Encounter Details Date Type Department Care Team (Late st Contact Info) Description 05/27/2006 Outpatient Historical [facility] Internal Medicine Medical [place] [facility] [address] [phone] Becky Hook MD [address] [place] [address] [address] [place] [address] Social History Tobacco Use Types Packs/Day Years Used Date Smoking Tobacco: Never Assessed Sex and Gender Information Value Date Recorded Sex Assigned at Not on file Legal Sex Male 4:20 AM ELECTRONIC WARFARE TECHNICAL Gender Identity Not on file Sexual Orientation Not on file documented as of this encounter Last Filed Vital Signs Vital Sign Reading Time Taken Comments Blood Pressure 124/94 05/27/2006 1:45 PM ELECTRONIC WARFARE TECHNICAL Pulse 74 05/27/2006 1:45 PM ELECTRONIC WARFARE TECHNICAL Temperature 37 C (98.6 F) 05/27/2006 1:45 PM ELECTRONIC WARFARE TECHNICAL Respiratory Rate 12 05/27/2006 1:45 PM ELECTRONIC WARFARE TECHNICAL Oxygen Saturation - - Inhaled Oxygen Concentration - - Weight 100.7 kg (222 lb) 05/27/2006 1:45 PM ELECTRONIC WARFARE TECHNICAL Height 182.9 cm (6') 05/27/2006 1:45 PM ELECTRONIC WARFARE TECHNICAL Body Mass Index 30.11 05/27/2006 1:45 PM ELECTRONIC WARFARE TECHNICAL documented in this encounter Plan of Treatment Not on file documented as of this encounter Visit Diagnoses Not on filedocumented in this encounter Care Teams Field Marketing Lead Relationship Specialty Start Date End Date Becky Hook MD [address] [phone] PCP - General 09/10/05 11/06/18 documented as of this encounter
--- OUTSIDE RECORDS SUMMARY | 2024-08-20 11:23 | XMS_ITS | Encounter Summary ---
Author Organization [facility] Address [address] [place] [address] Care Team Providers Care Wood Machinist Name Role Phone Becky Hook MD Primary Care Provider [phone] Encounter Details Date Type Department Care Team (Late st Contact Info) Description 09/10/2005 Outpatient Historical [facility] Internal Medicine Medical [place] [facility] [address] [phone] Becky Hook MD [address] [place] [phone] Social History Tobacco Use Types Packs/Day Years Used Date Smoking Tobacco: Never Assessed Sex and Gender Information Value Date Recorded Sex Assigned at Not on file Legal Sex Male 4:20 AM MECHANICAL SYSTEMS CONTROL ENGINEER Gender Identity Not on file Sexual Orientation Not on file documented as of this encounter Last Filed Vital Signs Vital Sign Reading Time Taken Comments Blood Pressure 140/100 09/10/2005 10:00 AM MECHANICAL SYSTEMS CONTROL ENGINEER Pulse 60 09/10/2005 10:00 AM MECHANICAL SYSTEMS CONTROL ENGINEER Temperature 36.7 C (98 F) 09/10/2005 10:00 AM MECHANICAL SYSTEMS CONTROL ENGINEER Respiratory Rate - - Oxygen Saturation - - Inhaled Oxygen Concentration - - Weight 108 kg (238 lb) 09/10/2005 10:00 AM MECHANICAL SYSTEMS CONTROL ENGINEER Height - - Body Mass Index - - documented in this encounter Plan of Treatment Not on file documented as of this encounter Visit Diagnoses Not on filedocumented in this encounter Care Teams Wood Machinist Relationship Specialty Start Date End Date Becky Hook MD [address] [place] [phone] PCP - General 09/10/05 11/06/18 documented as of this encounter
--- OUTSIDE RECORDS SUMMARY | 2024-08-20 11:23 | XMS_ITS | Encounter Summary ---
Author Organization [facility] Address [address] [place] [address] Care Team Providers Care Health Administrator Name Role Phone Becky Hook MD Primary Care Provider [phone] Encounter Details Date Type Department Care Team (Late st Contact Info) Description 07/29/[address] [facility] Internal Medicine Medical [place] [facility] [address] [phone] Becky Hook MD [address] [place] [phone] Social History Tobacco Use Types Packs/Day Years Used Date Smoking Tobacco: Never Assessed Sex and Gender Information Value Date Recorded Sex Assigned at Not on file Legal Sex Male 4:20 AM RESIDENTIAL SUBCONTRACTOR Gender Identity Not on file Sexual Orientation Not on file documented as of this encounter Plan of Treatment Not on file documented as of this encounter Visit Diagnoses Not on filedocumented in this encounter Care Teams Health Administrator Relationship Specialty Start Date End Date Becky Hook MD [address] [place] [phone] PCP - General 09/10/05 11/06/18 documented as of this encounter
--- OUTSIDE RECORDS SUMMARY | 2024-08-20 11:23 | XMS_ITS | Encounter Summary ---
Author Organization [facility] Address [address] [place] [address] Care Team Providers Care Parts Counterman Name Role Phone Becky Hook MD Primary Care Provider [phone] Encounter Details Date Type Department Care Team (Latest Contact Info) Description 09/10/2005 Outpatient Historical [facility] Becky Goldstein MD [facility] [address] [phone] Unspecified Essential Hypertension (Primary Dx) Social History Tobacco Use Types Packs/Day Years Used Date Smoking Tobacco: Never Assessed Sex and Gender Information Value Date Recorded Sex Assigned at Not on file Legal Sex Male 4:20 AM MACHINE TOOL DRESSER Gender Identity Not on file Sexual Orientation Not on file documented as of this encounter Plan of Treatment Not on file documented as of this encounter Procedures Procedure Name Priority Date/Time Associated Diagnosis Comments LIPID PANEL Routine 09/10/2005 11:29 AM MACHINE TOOL DRESSER COMPREHENSIVE METABOLIC PANEL Routine 09/10/2005 11:29 AM MACHINE TOOL DRESSER URINALYSIS W/REFLEX MICROSCOPIC Routine 09/10/2005 11:20 AM MACHINE TOOL DRESSER documented in this encounter Results * (ABNORMAL) LIPID PANEL (09/10/2005 11:29 AM MACHINE TOOL DRESSER) LIPID PANEL COMMENT See below INTERFACE SYSTEM Comment: Adult ATP III Classifications: Cholesterol (mg/dL) Triglyceride (mg/dL) Desirable <200 Normal <150 Borderline 200 - 239 Borderline High 150 - 199 High >=240 High 200 - 499 Very High >=500 HDL Cholesterol (mg/dL) LDL (mg/dL) Low (increased risk) <40 Optimal <100 High (reduced risk) >=60 Near or above optimal 100 - 129 Borderline 130 - 159 High 160 - 189 Very High >=190 LDL calculation is not accurate if Triglycerides are greater than 400 mg /dL Pediatric NCEP Classifications: Cholesterol(<20 years),(mg/dL) Triglyceride Desirable <170 Pediatric classification Borderline 170 - 199 not defined. High >=200 HDL (<5 years) LDL (mg/dL) No Reference Range Established Desirable <110 Borderline 110 - 129 High >=130 CHOLESTEROL 205(H) 100 - 199 mg/dL INTERFACE SYSTEM TRIGLYCERIDE 218(H) 10 - 149 mg/dL INTERFACE SYSTEM HDL 38(L) 40 - 59 mg/dL INTERFACE SYSTEM LDL CALCULATED 123(H) <=99 mg/dL INTERFACE SYSTEM CHOL/HDL RATIO 5.4(H) 2.0 - 5.0 INTER FACE SYSTEM Comment:See interpretive katie a section for risk classifications. 09/10/2005 11:2 9 AM MACHINE TOOL DRESSER us Becky Hook MD CHEMISTRY ORDERABLES Final R esult INTERFACE SYSTEM Refer to clinic/hospital department * (ABNORMAL) COMPREHENSIVE METABOLIC PANEL (09/10/2005 11:29 AM MACHINE TOOL DRESSER) GLUCOSE 92 65 - 109 mg/dL INTERFACE SYSTEM CREATININE 1.0 0.5 - 1.3 mg/dL INTERFACE SYSTEM CALCIUM 9.2 8.6 - 10.2 mg/dL INTERFACE SYSTEM AST 37 12 - 38 U/L INTERFACE SYSTEM ALKALINE PHOSPHATASE 99 40 - 129 U/L INTERFACE SYSTEM ALT 94(H) 0 - 41 U/L INTERFACE SYSTEM BILIRUBIN TOTAL 0.3 0.2 - 1.0 mg/dL INTERFACE SYSTEM ALBUMIN 4.7 3.4 - 4.8 g/dL INTERFACE SYSTEM TOTAL PROTEIN 7.9 6.3 - 8.6 g/dL INTERFACE SYSTEM BUN 8 6 - 20 mg/dL INTERFACE SYSTEM SODIUM 139 135 - 145 mmol/L INTERFACE SYSTEM POTASSIUM 4.4 3.5 - 4.9 mmol/L INTERFACE SYSTEM CHLORIDE 103 96 - 108 mmol/L INTERFACE SYSTEM CO2 24 22 - 30 mmol/L INTERFACE SYSTEM 09/10/2005 11:2 9 AM MACHINE TOOL DRESSER us Becky Hook MD CHEMISTRY ORDERABLES Final R esult Performing Organization Address [facility] Co de Phone Number INTERFACE SYSTEM Refer to clinic/hospital department * URINALYSIS (09/10/2005 11:20 AM MACHINE TOOL DRESSER) COLOR UA Yellow INTERFACE SYSTEM CLARITY UA Clear Clear INTERFACE SYSTEM SPECIFIC GRAVITY UA 1.010 1.001 - 1.035 INTERFACE SYSTEM PH UA 5.5 5.0 - 8.0 INTERFACE SYSTEM LEUKOCYTE ESTERASE UA Negative Negative INTERFACE SYSTEM NITRITE UA Negative Negative INTERFACE SYSTEM PROTEIN UA Negative Negative INTERFACE SYSTEM GLUCOSE UA Negative Negative INTERFACE SYSTEM KETONES UA Negative Negative INTERFACE SYSTEM UROBILINOGEN UA <1 <=1 mg/dL INTE RFACE SYSTEM BILIRUBIN UA Negative Negative INTERFA CE SYSTEM BLOOD UA Negative Negative INTERFACE SYSTEM 09/10/2005 11:2 0 AM MACHINE TOOL DRESSER Becky Hook MD URINE ORDERABLES Final Resul t Performing Organization Address [facility] Phone Number INTERFACE SYSTEM Refer to clinic/hospital department documented in this encounter Visit Diagnoses Diagnosis Unspecified essential hypertension- Primary documented in this encounter Care Teams Parts Counterman Relationship Specialty Start Date End Date Becky Hook MD [address] [place] [phone] PCP - General 09/10/05 11/06/18 documented as of this encounter
--- OUTSIDE RECORDS SUMMARY | 2024-08-20 11:23 | XMS_ITS | Encounter Summary ---
Author Organization [facility] Address [address] [place] [address] Care Team Providers Care Interstate Bus Driver Name Role Phone Becky Hook MD Primary Care Provider [phone] Encounter Details Date Type Department Care Team (Late st Contact Info) Description 03/12/2005 Outpatient Historical [facility] Brock Pierre MD [address] [place] [address] Er, Authorized P NO ADDRESS ON FILE ACUTE PHARYNGITIS (Primary Dx) Social History Tobacco Use Types Packs/Day Years Used Date Smoking Tobacco: Never Assessed Sex and Gender Information Value Date Recorded Sex Assigned at Not on file Legal Sex Male 4:20 AM CONSOLIDATION ACCOUNTANT Gender Identity Not on file Sexual Orientation Not on file documented as of this encounter Plan of Treatment Not on file documented as of this encounter Visit Diagnoses Diagnosis Acute pharyngitis- Primary documented in this encounter Care Teams Interstate Bus Driver Relationship Specialty Start Date End Date Becky Hook MD [address] [place] [phone] PCP - General 09/10/05 11/06/18 documented as of this encounter
--- OUTSIDE RECORDS SUMMARY | 2024-08-20 11:23 | XMS_ITS | Encounter Summary ---
Author Organization [facility] Address [address] [place] [address] Care Team Providers Care Membership Advisor Name Role Phone Becky Hook MD Primary Care Provider [phone] Encounter Details Date Type Department Care Team (Late st Contact Info) Description 05/24/[address] [facility] Internal Medicine Medical [place] [facility] [address] [phone] Becky Hook MD [facility] [address] [place] [address] Social History Tobacco Use Types Packs/Day Years Used Date Smoking Tobacco: Never Assessed Sex and Gender Information Value Date Recorded Sex Assigned at Not on file Legal Sex Male 4:20 AM OPEN HEARTH MELTER Gender Identity Not on file Sexual Orientation Not on file documented as of this encounter Progress Notes * Becky Hook MD - 03/31/2008 2:41 AM CDT TIME:11:08 am PATIENT`S HOME PHONE: PATIENT`S WORK PHONE: PATIENT`S INSURANCE: [employer] [facility] WHO TOOK THE CALL: Ivania Hester I GENERAL INFORMATION ALTERNATIVE PHONE NUMBER: [phone] WHO CALLED: Patient`s mother called. CURRENT ALLERGY LIST: Patient reports no known allergies. PHARMACY NUMBER: [phone] PROBLEMS: pt called the exchange last night and Dr Long sent him to urgent care ..pt dx's w/ mono....in a lot of pain and was not given nothing at urgent care...wants to know what he can get for the pain in his throat ...can hardly swallow......... SECTION 1: DOCTOR`S RESPONSE: paula 05/24/06 at 01:07 pm this has codeine in it which helps w/ pain MEDICATIONS: Call in to [facility] ORAL SYRUP 10-100 MG/5ML OUNCE, 2 tsp q 6 hours prn, 4 Dispensed, status: NEW PRESCRIPTION, 05/24/2006. FINAL ACTION: remedios 05/24/06 at 02:46 pm Spoke with patient 05/24/06 at 02:46 pm. Called pharmacy at 05/24/06 at 02:46 pm. Electronically Signed by: Ivania Hester on Wednesday, May 24, 2006 documented in this encounter Plan of Treatment Not on file documented as of this encounter Visit Diagnoses Not on filedocumented in this encounter Care Teams Membership Advisor Relationship Specialty Start Date End Date Becky Hook MD [address] [place] [phone] PCP - General 09/10/05 11/06/18 documented as of this encounter
--- OUTSIDE RECORDS SUMMARY | 2024-08-20 11:23 | XMS_ITS | Clinical Summary ---
Author Organization [facility] Address [address] [facility] [place] [address] Phone Care Team Providers Care Groundskeeping Yardman Name Role Phone Unavailable Primary Care Provider Unavailabl e Medications CHERATUSSIN AC 10 MG-100 MG/5 ML SYRUP 2 tsp q 6 hours prn 4.00 0 05/24/2006 Active LIQUIBID-D 40 MG-600 MG 12 HR TAB 1 Two Times A Day, As Needed 30.00 0 05/21/2006 Active RANITIDINE 300 MG TAB 1 Every Day 90.00 3 09/10/2005 Active ZOLOFT 50 MG TAB 1 Every Day 90.00 3 04/12/2006 Active atenolol (TENORMIN) 50 mg Oral Tab 1 Every Day 100.00 3 08/28/2007 Active Active Problems Problem Noted Date Diagnosed Date Infectious mononucleosis 05/27/2006 Other and unspecified hyperlipidemia 05/27/2006 Unspecified essential hypertension 09/10/2005 Esophageal reflux 09/10/2005 Other nonspecific abnormal serum enzyme levels 0 09/10/2005 Screening for lipoid disorders 09/10/2005 Generalized anxiety disorder 09/10/2005 Encounters Date Type Department Care Team Description 08/19/2024 External Device Data [facility] ABSTRACTION Provider, Abstract 08/19/2024 External Device Data [facility] ABSTRACTION Provider, Abstract 08/18/2024 External Device Data [facility] ABSTRACTION Provider, Abstract 08/17/2024 Telephone [facility] Internal Medicine - Sybil Adams [address] [facility] [address] [place] [address] Aleksandr Montero MD Needs Appointment from Last 3 Months Social History Tobacco Use Types Packs/Day Years Used Date Smoking Tobacco: Never Assessed Sex and Gender Information Value Date Recorded Sex Assigned at Not on file Legal Sex Male 4:20 AM PLATFORM ATTENDANT Gender Identity Not on file Sexual Orientation Not on file Last Filed Vital Signs Vital Sign Reading Time Taken Comments Blood Pressure 124/94 05/27/2006 1:45 PM PLATFORM ATTENDANT Pulse 74 05/27/2006 1:45 PM PLATFORM ATTENDANT Temperature 37 C (98.6 F) 05/27/2006 1:45 PM PLATFORM ATTENDANT Respiratory Rate 12 05/27/2006 1:45 PM PLATFORM ATTENDANT Oxygen Saturation - - Inhaled Oxygen Concentration - - Weight 100.7 kg (222 lb) 05/27/2006 1:45 PM PLATFORM ATTENDANT Height 182.9 cm (6') 05/27/2006 1:45 PM PLATFORM ATTENDANT Body Mass Index 30.11 05/27/2006 1:45 PM PLATFORM ATTENDANT Plan of Treatment Health Maintenance Due Date Last Done Comments DTAP/TDAP/TD VACCINES (1 - Tdap) 2000 HEPATITIS B VACCINES (1 of 3 - 19+ 3-dose series) 2000 INFLUENZA VACCINE (#1) 2024 HPV VACCINES Aged Out No longer eligi ble based on patient's age to complete this topic
--- OUTSIDE RECORDS SUMMARY | 2024-08-20 11:23 | XMS_ITS | Encounter Summary ---
Author Organization [facility] Address [address] [place] [address] Care Team Providers Care Publicity Writer Name Role Phone Becky Hook MD Primary Care Provider [phone] Encounter Details Date Type Department Care Team (Late st Contact Info) Description 09/10/2005 Orders Only [facility] ([facility] Internal Medicine Medical [place] [address] [phone] Becky Hook MD [address] [facility] [address] [place] [address] Social History Tobacco Use Types Packs/Day Years Used Date Smoking Tobacco: Never Assessed Sex and Gender Information Value Date Recorded Sex Assigned at Not on file Legal Sex Male 4:20 AM GENERATOR MAN Gender Identity Not on file Sexual Orientation Not on file documented as of this encounter Progress Notes * Becky Hook MD - 03/25/2008 7:31 PM CDT BLOOD PRESSURE: 140/100 Right Arm Sitting TEMPERATURE: 98??f Oral PULSE: 60 Right Radial, Regular WEIGHT: 238lbs NURSE NAME: Alina Tenorio ALLERGIES: No known drug allergies. MEDICATIONS: Medication list current. CHIEF COMPLAINT Seen as a new patient to get established with the practice. high bp HISTORY: HISTORY: 401.9-HYPERTENSION, UNSPECIFIED The blood pressure has not been taken outside the office since the last visit. 530.81-GASTROESOPHAGEAL REFLUX (GERD) The patient's dyspeptic symptoms remain stable. The patient has significant abdominal pain. No complications noted from the medication presently being used. HISTORY OF PRESENT ILLNESS: MOOD DISORDER: The patient has symptoms of anxiousness, has symptoms of excessive worry, has symptoms of difficulty concentrating, denies symptoms of mood change, voices no suicidal ideations. Treatments in the past include Wellbutrin which was not effective. CURRENT PROBLEM LIST: CURRENT MEDICATION LIST: ATENOLOL ORAL TABLET 50 MG, 1 Every Day RANITIDINE HCL ORAL TABLET 300 MG, 1 Every Day CURRENT ALLERGY LIST: ROS: new patient history form reviewed 09/10/05 PSYCHIATRIC: NOTES INCREASED NERVOUSNESS. PAST MEDICAL HISTORY: new patient history form reviewed 09/10/05 MEDICAL: Hypertension. FAMILY HISTORY: new patient history form reviewed 09/10/05 SOCIAL HISTORY: new patient history form reviewed 09/10/05 TOBACCO USE: Currently smokes less than 1/2 PPD. DISCUSSED SMOKIN.06. ALCOHOL: Drinks a moderate amount of alcoholic beverages, patient admits to heavy alcohol use. 8 drinks 1-2 times a week. EXERCISES: The patient exercises regularly. PHYSICAL EXAMINATION: CONSTITUTIONAL: GENERAL APPEARANCE: Healthy appearing patient in no distress. EYES: CONJUNCTIVAE/LIDS: RIGHT EYELID HORDEOLUM. NECK/THYROID: Trachea midline. No thyroid enlargement, tenderness, or mass. No supraclavicular or cervical adenopathy. RESPIRATORY: Clear to auscultation and percussion. Normal respiratory effort. CARDIOVASCULAR: CARDIAC: Regular rhythm. No murmurs, rubs, or gallops. ARTERIAL: Aortic pulses of normal amplitude with no bruits. EDEMA/VARICOSITIES OF EXTREMITIES: No edema or varicosities. GASTROINTESTINAL: ABDOMEN: Soft, non-tender, without masses. Bowel sounds active. LIVER/SPLEEN/KIDNEY: No hepatosplenomegaly, tenderness or nodularity. Kidneys not palpable. PSYCHIATRIC: ANXIOUS. ASSESSMENT/PLAN: 401.9-HYPERTENSION, UNSPECIFIED ASSESSMENT: The blood pressure remains satisfactory. Will not change medication, continue to monitor for complications. Will check laboratory. Will check at home and f/u 3 months MEDICATIONS: ATENOLOL ORAL TABLET 50 MG, 1 Every Day, 90 Dispensed, 3 Fills, status: NEW PRESCRIPTION, 09/10/2005. LAB ORDERS: Order number: [id number] Test Ordered: COMPREHENSIVE METABOLIC PANEL 65771 Order number: [id number] Test Ordered: URINALYSIS, COMPLETE 1133 790.5-ABNORMAL LIVER ENZYMES told before had fatty liver will get records. V77.91-SCREENING FOR LIPID DISORDERS LAB ORDERS: Order number: [id number] Test Ordered: LIPID PANEL 7600 300.02-ANXIETY DISORDER does not have bipolar symptoms. MEDICATIONS: ZOLOFT ORAL TABLET 50 MG, 1 Every Day, 90 Dispensed, 3 Fills, status: NEW PRESCRIPTION, 09/10/2005. HEALTH MAINTENANCE: LAST FLU VACCINE:n/a REQUESTING OLD RECORDS: I am requesting old records. RETURN VISIT : Patient instructed to return in 3 months. Electronically Signed by: Becky Hook MD on Saturday, September 10, 2005 documented in this encounter Plan of Treatment Not on file documented as of this encounter Visit Diagnoses Not on filedocumented in this encounter Care Teams Publicity Writer Relationship Specialty Start Date End Date Becky Hook MD [address] [place] [phone] PCP - General 09/10/05 11/06/18 documented as of this encounter
--- OUTSIDE RECORDS SUMMARY | 2024-08-20 11:23 | XMS_ITS | Encounter Summary ---
Author Organization [facility] Address [address] [place] [address] Care Team Providers Care Parakeet Raiser Name Role Phone Becky Hook MD Primary Care Provider [phone] Encounter Details Date Type Department Care Team (Late st Contact Info) Description 04/12/2006 Orders Only [facility] Internal Medicine Medical [place] [address] [facility] [address] [phone] Becky Hook MD [facility] [address] [place] [address] Social History Tobacco Use Types Packs/Day Years Used Date Smoking Tobacco: Never Assessed Sex and Gender Information Value Date Recorded Sex Assigned at Not on file 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 ALTERNATIVE PHONE NUMBER: no need PHARMACY NUMBER: pharmacare SECTION 1: REQUESTED ACTION remedios 04/12/06 at 09:54 am: MEDICATION REQUEST: MEDICATIONS: ZOLOFT ORAL TABLET 50 MG, 1 Every Day, 90 Dispensed, 3 Fills, status: NEW PRESCRIPTION, 09/10/2005. DOCTOR`S RESPONSE: paula 04/12/06 at 10:06 am MEDICATIONS: ZOLOFT ORAL TABLET 50 MG, 1 Every Day, 90 Dispensed, 3 Fills, status: CONTINUED, 04/12/2006. FINAL ACTION: lagaci 04/12/06 at 04:57 pm faxed Electronically Signed by: Ivania Hester on Wednesday, April 12, 2006 documented in this encounter Plan of Treatment Not on file documented as of this encounter Visit Diagnoses Not on filedocumented in this encounter Care Teams Parakeet Raiser Relationship Specialty Start Date End Date Becky Hook MD [address] [place] [phone] PCP - General 09/10/05 11/06/18 documented as of this encounter
--- OUTSIDE RECORDS SUMMARY | 2024-08-20 11:23 | XMS_ITS | Encounter Summary ---
Author Organization [facility] Address 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
--- OUTSIDE RECORDS SUMMARY | 2024-08-20 11:23 | XMS_ITS | Encounter Summary ---
Author Organization [facility] Address [address] [place] [address] Care Team Providers Care Ice Skater Name Role Phone Becky Hook MD Primary Care Provider [phone] Encounter Details Date Type Department Care Team (Late st Contact Info) Description 08/28/2007 Orders Only [facility] Internal Medicine Medical [place] [address] [facility] [address] [phone] Becky Hook MD [address] [place] [phone] Social History Tobacco Use Types Packs/Day Years Used Date Smoking Tobacco: Never Assessed Sex and Gender Information Value Date Recorded Sex Assigned at Not on file 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
--- OUTSIDE RECORDS SUMMARY | 2024-08-20 11:23 | XMS_ITS | Encounter Summary ---
Author Organization [facility] Address [address] [place] [address] Care Team Providers Care Zipper Measurer Name Role Phone Becky Hook MD Primary Care Provider [phone] Encounter Details Date Type Department Care Team (Late st Contact Info) Description 09/16/2004 Outpatient Historical [facility] [address] 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
--- OUTSIDE RECORDS SUMMARY | 2024-08-20 11:23 | XMS_ITS | Encounter Summary ---
Author Organization [facility] Address [address] [place] [address] Care Team Providers Care Cascara Bark Cutter Name Role Phone Unavailable Primary Care Provider Unavailabl e Reason for Visit * Reason Comments Needs Appointment Encounter Details Date Type Department Care Team (Late st Contact Info) Description 08/17/2024 Telephone [facility] Internal Medicine - [place] [address] [facility] [address] [place] [address] [place] [address] Alphonso Cook [facility] [address] [place] [address] Needs Appointment Social History Tobacco Use Types Packs/Day Years Used Date Smoking Tobacco: Never Assessed Sex and Gender Information Value Date Recorded Sex Assigned at Not on file 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 Topic: Administrative >> Aug 17, 2024 8:30 AM Lamine Rico wrote: Caller Name: Daniella Cast (mom Not on PHI) Callback Number: [phone] Call Notes: Patients mother is stating patient got out of the ER (08-15-24)... Blood sugar was 478, has not been treating for diabetes since 2022. Patients mother is stating patient would like to Establish Care With Dr. Montero (Patients brother also sees Dr. Montero (Adeel Cast). Also found an enlarged left Ventricle that patient didn't know he had Are they reporting a patient safety concern? Yes Relationship to patient: Mother Caller presents the following patient safety concerns regarding patient: Patients mother is statingpatient got out of the ER (08-15-24)... Blood sugar was 478, has not been treating for diabetes [id number]. Patients mother is stating patient would like to Establish Care With Dr. Montero (Patients brother also sees Dr. Montero (Adeel Cast). Also found an enlarged left Ventricle that patient didn't know he had. Er Doctor said it was totally unaceptable that he wasn't on the medication for 2 years (told been on pre diabetes), gave 1 shot insulin in hospital (still in 200s) also given metformin (still over 250). Patient would like to Establish care with Dr. Montero. Patients mother would like a call back to discuss MIGUEL. Please return call to patient and/or alternative listed on PHI. Information was taken from caller, no information was released to the caller to protect patient privacy. ENGINEER documented in this encounter Plan of Treatment Not on file documented as of this encounter Visit Diagnoses Not on filedocumented in this encounter
--- OUTSIDE RECORDS SUMMARY | 2024-08-20 11:23 | XMS_ITS | Encounter Summary ---
Author Organization [facility] Address [address] [place] [address] Care Team Providers Care Pretzel Cooker Name Role Phone Becky Hook MD Primary Care Provider [phone] Encounter Details Date Type Department Care Team (Late st Contact Info) Description 05/21/2006 Orders Only [facility] Internal Medicine Medical [place] [address] [phone] Becky Hook MD [facility] [address] [place] [address] Social History Tobacco Use Types Packs/Day Years Used Date Smoking Tobacco: Never Assessed Sex and Gender Information Value Date Recorded Sex Assigned at Not on file 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 CURRENT ALLERGY LIST: Patient reports no known allergies. PHARMACY NUMBER: [phone] PROBLEMS: CONGESTION: The symptoms began approximately 1 week ago. Patient complains of head congestion, complains of nasal congestion. yellow drainage COUGH: . yellow mucous EARACHE: . both ears clogged SORE THROAT: . glands are swollen and sore ...throat is red....no other sx...has tried tylenol cold, nyquil cold and flu and aspirin....would like something called out ... SECTION 1: DOCTOR`S RESPONSE: paula 05/21/06 at 01:15 pm MEDICATIONS: Call in to Pharmacy LIQUIBID-D ORAL TABLET 12 HR 40-600 MG, 1 Two Times A Day, As Needed, 30 Dispensed, status: NEW PRESCRIPTION, 05/21/2006. FINAL ACTION: faisal 05/21/06 at 01:18 pm Spoke with patient 05/21/06 at 01:18 pm. spoke with mom....becca Called pharmacy at 05/21/06 at 01:18 pm. documented in this encounter Plan of Treatment Not on file documented as of this encounter Visit Diagnoses Not on filedocumented in this encounter Care Teams Pretzel Cooker Relationship Specialty Start Date End Date Becky Hook MD [address] [place] [phone] PCP - General 09/10/05 11/06/18 documented as of this encounter
[2024-08-20 11:33] LABS: Creatinine Urine 30.59 mg/dL (40-278); MALB Creatinine Ratio 42.4 mg/g (0-30); Microalbumin Urine Random < 13.0 mg/L
[2024-08-20 11:46] LABS: Alanine Aminotransferase 87 U/L (16-63); Albumin Level 4.6 g/dL (3.4-5.0); Alkaline Phosphatase 128 U/L (46-116); Anion Gap 12 mmol/L (4-12); Aspartate Amino Transferase 46 U/L (15-37); Bilirubin,Total 0.6 mg/dL (0.00-1.00); Blood Urea Nitrogen 13 mg/dL (7-18); Calcium 9.9 mg/dL (8.5-10.1); Carbon Dioxide 24 mmol/L (21-32); Chloride 98 mmol/L (98-108); Cholesterol 105 mg/dL (0-200); Creatine Kinase 133 U/L (39-308); Estimated Glomerular Filt Rate > 60; Glucose 327 mg/dL (70-99); HDL Direct 33 mg/dL (40-60); LDL Cholesterol Calculated 30 mg/dL (<130); Osmolality Calculated 291 mOsm/kg (285-295); Potassium 4.2 mmol/L (3.5-5.1); Prostate Specific Antigen 0.8 ng/mL (< OR = 4.0); Sodium 134 mmol/L (136-145); Total Protein 8.1 g/dL (6.4-8.2); Triglycerides 210 mg/dL (0-150)
[2024-08-20 12:02] LABS: Thyroid Stimulating Hormone Reflex 0.86 u/IU/mL (0.36-3.74)
[2024-08-20 12:22] LABS: Hemoglobin A1C 13.7 % (<5.7)
[2024-08-22 08:18] LABS: Vitamin D 25 Hydroxy 45 ng/mL (30-100)
== END 2024-08-20 10:03 | disposition home or self-care (01) ==
LOC: CHSLAB 10:03
PROVIDERS: PCP Physician Assistant Medical; Visit Provider Physician Assistant Medical
DX: E11.9 Type 2 diabetes mellitus without complications (principal); M79.10 Myalgia, unspecified site; E55.9 Vitamin D deficiency, unspecified; I10 Essential (primary) hypertension; E78.5 Hyperlipidemia, unspecified; K75.81 Nonalcoholic steatohepatitis (NASH); Z12.5 Encounter for screening for malignant neoplasm of prostate
CPT/HCPCS: 36415; 80053; 80061; 82043; 82306; 82550; 83036; 84153; 84443; 85025; G0103